=== PATIENT | female | born 1975 | race Caucasian/White ===

== ENCOUNTER 2017-12-02 18:05 | Emergency (ER) | payer MEDICAID ==
[~2017-12-02] VITALS: Ht 129.5 cm; Wt 80.3 kg
[2017-12-02 18:10] VITALS: Ht 129.5 cm; Wt 80.3 kg
[2017-12-02 21:37] LABS: BASOPHIL % 0.5 % (0-2); PLATELET COUNT 364 x10^3mcL (130-400); RED CELL DISTRIBUTION WIDTH 14.2 % (11.5-14.5)
[2017-12-02 21:48] LABS: CALCIUM 9.6 mg/dL (8.5-10.1); CARBON DIOXIDE 28.8 mmol/L (21-32); CHLORIDE SERUM 102 mmol/L (98-107); CREATININE SERUM 0.7 mg/dL (0.6-1.0); GFR1 > 60 mL/min; GLUCOSE SERUM 99 mg/dL (74-106); POTASSIUM SERUM 3.4 mmol/L (3.5-5.1); SODIUM SERUM 140 mmol/L (136-145)
[2017-12-02 21:52] LABS: ALBUMIN 3.5 g/dL (3.4-5.0); ALKALINE PHOSPHATASE 143 U/L (46-116); ALT/SGPT 33 U/L (14-59); AST/SGOT 17 U/L (15-37); BILIRUBIN TOTAL 0.4 mg/dL (0.20-1.00); TOTAL PROTEIN, SERUM 8.3 g/dL (6.4-8.2)
[2017-12-03 02:00] VITALS: BP 117/75
== END 2017-12-03 02:00 | disposition home or self-care (01) ==
LOC: ED 18:05
PROVIDERS: Emergency Medicine
DX: R07.2 Precordial pain (principal); R11.0 Nausea; I10 Essential (primary) hypertension; E78.00 Pure hypercholesterolemia, unspecified
CPT/HCPCS: 36415; 85378; Q0092

== ENCOUNTER 2017-12-05 12:54 | Emergency (ER) | payer MEDICAID ==
[~2017-12-05] VITALS: Ht 154.9 cm; Wt 78.5 kg
[2017-12-05 15:45] LABS: BASOPHIL % 0.6 % (0-2); PLATELET COUNT 337 x10^3mcL (130-400)
[2017-12-05 15:58] LABS: ALBUMIN 3.5 g/dL (3.4-5.0); ALKALINE PHOSPHATASE 137 U/L (46-116); ALT/SGPT 40 U/L (14-59); AST/SGOT 27 U/L (15-37); BILIRUBIN TOTAL 0.57 mg/dL (0.20-1.00); CALCIUM 8.9 mg/dL (8.5-10.1); CHLORIDE SERUM 100 mmol/L (98-107); CREATININE SERUM 0.7 mg/dL (0.6-1.0); GFR1 > 60 mL/min; GLUCOSE SERUM 94 mg/dL (74-106); RED CELL DISTRIBUTION WIDTH 14.6 % (11.5-14.5); SODIUM SERUM 137 mmol/L (136-145); TOTAL PROTEIN, SERUM 8.2 g/dL (6.4-8.2)
[2017-12-05 16:00] LABS: POTASSIUM SERUM 2.9 mmol/L (3.5-5.1)
[2017-12-05 20:23] VITALS: BP 122/75
== END 2017-12-05 20:23 | disposition home or self-care (01) ==
LOC: ED 12:54
PROVIDERS: Specialist
DX: E87.6 Hypokalemia (principal); R07.89 Other chest pain; E78.00 Pure hypercholesterolemia, unspecified; I10 Essential (primary) hypertension
CPT/HCPCS: 83880; Q0092

== ENCOUNTER 2019-12-20 19:14 | Emergency (ER) | payer MEDICAID ==
[~2019-12-20] VITALS: Ht 147.3 cm; Wt 81.6 kg
[2019-12-20 19:26] VITALS: Ht 147.3 cm; Wt 81.6 kg
[2019-12-20 20:04] LABS: BASOPHIL % 1.1 % (0-2); PLATELET COUNT 284 x10^3mcL (130-400); RED CELL DISTRIBUTION WIDTH 13.1 % (11.5-14.5)
[2019-12-20 20:17] LABS: ALBUMIN 3.6 g/dL (3.4-5.0); ALKALINE PHOSPHATASE 130 U/L (46-116); ALT/SGPT 42 U/L (14-59); AST/SGOT 21 U/L (15-37); BILIRUBIN TOTAL 0.5 mg/dL (0.20-1.00); CALCIUM 8.6 mg/dL (8.5-10.1); CARBON DIOXIDE 25.8 mmol/L (21-32); CHLORIDE SERUM 100 mmol/L (98-107); CREATININE SERUM 0.9 mg/dL (0.6-1.0); GFR1 > 60 mL/min; GLUCOSE SERUM 117 mg/dL (74-106); SODIUM SERUM 138 mmol/L (136-145); TOTAL PROTEIN, SERUM 8.2 g/dL (6.4-8.2)
[2019-12-20 20:19] LABS: POTASSIUM SERUM 2.8 mmol/L (3.5-5.1)
[2019-12-20 20:55] VITALS: BP 134/82
== END 2019-12-20 20:55 | disposition home or self-care (01) ==
LOC: ED 19:14
PROVIDERS: Emergency Medicine
DX: R07.89 Other chest pain (principal); E87.6 Hypokalemia; I10 Essential (primary) hypertension; E78.00 Pure hypercholesterolemia, unspecified; Z98.890 Other specified postprocedural states
CPT/HCPCS: J1885; Q0092

== ENCOUNTER 2020-06-13 15:03 | Emergency (ER) | payer MEDICAID, SELFPAY ==
[~2020-06-13] VITALS: Ht 160 cm; Wt 81.6 kg
[~2020-06-13 15:03] MED LIST: HYDROCHLOROTHIA25 MG PO; LOSARTAN POTAS100 M1 PO
[2020-06-13 15:06] VITALS: BP 100/58; Ht 160 cm; Wt 81.6 kg
== END 2020-06-13 16:32 | disposition home or self-care (01) ==
LOC: ED 15:03
DX: U07.1 COVID-19 (principal); I10 Essential (primary) hypertension; E11.9 Type 2 diabetes mellitus without complications; E78.00 Pure hypercholesterolemia, unspecified; Z98.51 Tubal ligation status; Z98.890 Other specified postprocedural states